=== PATIENT | male | born 1980 | race Caucasian/White ===

== ENCOUNTER 2018-12-25 16:44 | Emergency (ER) | payer MEDICAID, OTHER ==
[~2018-12-25] VITALS: Ht 177.8 cm; Wt 56.7 kg
--- OUTSIDE RECORDS SUMMARY | 2018-12-25 16:49 | XMS REPORT ---
Author Author Jamshid Rothman Organization [facility] Services Address [address] [place], [place] [id number] Care Team Providers Care School Bus Driver/Mechanic Name Role Phone Jamshid Rothman Unavailable PROBLEMS Type Condition ICD9-CM Code [id number] Code Onset Dates Condition Status SNOMED Code Problem Homeless Z59.0 Active 64334271 Problem Asthma with acute exacerbation J45.901 Active 018983267 Assessment Homeless Z59.0 Jul, Active 18771723 ALLERGIES Unknown Allergies SOCIAL HISTORY No smoking Hx information available PLAN OF CARE VITAL SIGNS MEDICATIONS Medication Instructions Dosage Frequency Start Date End Date Duration Status ProAir HFA 108 (90 Base) MCG/ACT Inhalation every 4 hrs 2 puffs as needed 4h Jun, 30 days Active Levaquin 750 MG Orally Once a day 1 tablet 24h Jun, 7 days Active PredniSONE 20 mg Orally Once a day 2 tablets 24h Jun, 5 days Active Breo Ellipta 100-25 MCG/INH Inhalation Once a day 1 puff 24h Jun, 30 days Active Proventil HFA 108 (90 Base) MCG/ACT Inhalation every 4 hrs 2 puffs as needed 4h Active RESULTS No Results PROCEDURES Procedure Date Ordered Related Diagnosis Body Site HOMELESS CASE MANAGEMENT 1/4 HR. Jul 24, 2016 IMMUNIZATIONS No Known Immunizations
--- OUTSIDE RECORDS SUMMARY | 2018-12-25 16:49 | XMS REPORT ---
Author Author [facility] Organization Outreach Address Unknown Phone Unavailable Care Team Providers Care Rigging Helper Name Role Phone [facility] Unavailable Unavailable PROBLEMS Type Condition ICD9-CM Code LCL25-RU Code Onset Dates Condition Status SNOMED Code Problem Homeless Z59.0 Active 83131595 Problem Asthma with acute exacerbation J45.901 Active 381754446 ALLERGIES Unknown Allergies SOCIAL HISTORY No smoking Hx information available PLAN OF CARE VITAL SIGNS MEDICATIONS Medication Instructions Dosage Frequency Start Date End Date Duration Status Celebrex 100 MG Orally Twice a day 1 capsule 12h Jul, Active RESULTS No Results PROCEDURES No Known procedures IMMUNIZATIONS No Known Immunizations
--- OUTSIDE RECORDS SUMMARY | 2018-12-25 16:49 | XMS REPORT ---
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 214066742 Problem Asthma exacerbation J45.901 Active 569247748 Problem Homeless Z59.0 Active 95387330 ALLERGIES Substance Reaction Event Type Date Status Haldol Comatose Drug Allergy Jul, Active ENCOUNTERS Encounter Location Date Diagnosis Outreach [address] [place] [phone] Oct, Convulsions, unspecified convulsion type R56.[address] [facility] [address] [place] [phone] Oct, Homeless Z59.0 [facility] [address] [place] [address] [phone] Aug, Homelessness Z59.[address] [place] [address] [phone] Aug, Symptomatic irreversible pulpitis K04.[address] [place] [address] [phone] Jul, Asthma exacerbation J45.901 [facility] [address] [place] [address] [phone] Jul, Homelessness Z59.[address] [facility] [address] [place] [address] [phone] Jul, Homelessness Z59.0 [facility] [address] [place] [address] [phone] Jul, Radiology [address] [place] [address] [phone] Jul, Left shoulder pain M25.512 and Mandibular pain R68.[address] [place] [address] [phone] Jul, Homeless Z59.[address] [place] [address] [id number] [phone] Jul, Mandibular pain R68.84 ; Left shoulder pain M25.512 and Painful pinna on examination, right H92.01 [facility] [address] [place] [address] [phone] Jun, Outreach [address] [place] [address] [id number] [phone] Jun, Chronic bronchitis with productive mucopurulent cough J41.[address] [facility] [address] [place] [address] [phone] Jun, Homelessness Z59.0 IMMUNIZATIONS Vaccine Route Administration Date Status orphenadrine citrate 60mg (Norflex), INJ IM Intramuscular Jul 24, 2016 Administered ketorolac tromethamine (Toradol),INJ IM Intramuscular Jul 24, 2016 Administered SOCIAL HISTORY Never Assessed REASON FOR VISIT Lt shoulder pain, Rt ear infx PLAN OF CARE Activity Details Follow Up 2 Weeks Reason:f/u pain VITAL SIGNS Height 72 in 2016-07-24 Weight 177.4 lbs 2016-07-24 Temperature 97.0 degrees Fahrenheit 2016-07-24 BMI 24.06 kg/m2 2016-07-24 Oximetry 97 2016-07-24 Blood pressure systolic 131 mm Hg 2016-07-24 Blood pressure diastolic 79 mm Hg 2016-07-24 MEDICATIONS Medication Instructions Dosage Frequency Start Date End Date Duration Status ProAir HFA 108 (90 Base) MCG/ACT Inhalation every 4 hrs 2 puffs as needed 4h Jun, 30 days Active Bactrim DS 800-160 MG Orally Twice a day 1 tablet 12h Jul, 7 days Active Zoloft 25 MG Orally Once a day 1 tablet 24h Active Breo Ellipta 100-25 MCG/INH Inhalation Once a day 1 puff 24h Jun, 30 days Active Proventil HFA 108 (90 Base) MCG/ACT Inhalation every 4 hrs 2 puffs as needed 4h Active RisperDAL 1 MG Orally Once a day 1 tablet 24h Active Ibuprofen 800 MG Orally Three times a day 1 tablet 8h Jul, 30 day(s) Active RESULTS No Results PROCEDURES Procedure Date Ordered Result Body Site ketorolac tromethamine (Toradol),INJ Jul 24, 2016 Norflex (Orephenadrine) 30mg, INJ... Jul 24, 2016 INSTRUCTIONS MEDICATIONS ADMINISTERED No Known Medications MEDICAL (GENERAL) HISTORY Type Description Date Medical History asthma - mild intermittent Medical History schizophrenia Medical History bipolar Surgical History retna attachment of both eyes Surgical History dbl hernia repair Surgical History surgery of urethra Surgical History gallbladder removed Surgical History tubes in both ears, pt thinks right tube fell out Hospitalization History [facility] - ear pain & asthma 06/2016 Hospitalization History pt reports no overnight hospital stays 08/21/16
--- OUTSIDE RECORDS SUMMARY | 2018-12-25 16:49 | XMS REPORT ---
Author Author Darion Marquez Organization Radiology Address [address] [place] [address] Phone Unavailable Care Team Providers Care Gis Engineer Name Role Phone Darion Marquez Unavailable Unavailable PROBLEMS Type Condition ICD9-CM Code JNQ30-NB Code Onset Dates Condition Status SNOMED Code Problem Homeless Z59.0 Active 93481357 Problem Asthma with acute exacerbation J45.901 Active 002844004 Assessment Left shoulder pain M25.512 Jul, Active 048615341 Assessment Mandibular pain R68.84 Jul, Active 782406444 ALLERGIES Unknown Allergies SOCIAL HISTORY No smoking Hx information available PLAN OF CARE VITAL SIGNS MEDICATIONS Medication Instructions Dosage Frequency Start Date End Date Duration Status Bactrim DS 800-160 MG Orally Twice a day 1 tablet 12h Jul, 7 days Active Breo Ellipta 100-25 MCG/INH Inhalation Once a day 1 puff 24h Jun, 30 days Active Zoloft 25 MG Orally Once a day 1 tablet 24h Active ProAir HFA 108 (90 Base) MCG/ACT Inhalation every 4 hrs 2 puffs as needed 4h Jun, 30 days Active Proventil HFA 108 (90 Base) MCG/ACT Inhalation every 4 hrs 2 puffs as needed 4h Active Risperdal 1 MG Orally Once a day 1 tablet 24h Active Celebrex 100 MG Orally Twice a day 1 capsule 12h Jul, 30 day(s) Active RESULTS Name Result Date Reference Range X ray : Shoulder, left 2016-07-24 X ray : Mandible -- Transmits 2016-07-26 PROCEDURES Procedure Date Ordered Related Diagnosis Body Site SHOULDER MIN2 VIEWS Jul 24, 2016 X-RAY EXAM OF JAW Jul 24, 2016 IMMUNIZATIONS No Known Immunizations
--- OUTSIDE RECORDS SUMMARY | 2018-12-25 16:49 | XMS REPORT ---
Author Author Ashley Romero Organization [employer] Address Unknown Phone Unavailable Care Team Providers Care Mult Au Matic Operator Name Role Phone Ashley Romero CP Unavailable Allergies, Adverse Reactions, Alerts Substance Reaction Event Type Haldol Info Not Available Drug Allergy Problems Problem Type Condition Code Onset Dates Condition Status Assessment Chronic bronchitis with productive mucopurulent cough J41.1 Active Problem Asthma with acute exacerbation J45.901 Active Medications Medication Code System Code Instructions Start Date End Date Status Dosage Levaquin [facility] [address]-88 750 MG Orally Once a day Jun 23, 2016 1 tablet Breo Ellipta [facility] [address]-44 100-25 MCG/INH Inhalation Once a day Jun 23, 2016 1 puff PredniSONE [facility] [address]-25 20 mg Orally Once a day Jun 23, 2016 2 tablets Proventil HFA [facility] [address]-34 108 (90 Base) MCG/ACT Inhalation every 4 hrs 2 puffs as needed Procedures Procedure Coding System Code Date Solu-Medrol, INJ (Methylprednisolone sodium)...DO NOT USE CPT-4 J2930 Jun 23, 2016 ESTAB PT LEVEL II CPT-4 83042 Jun 23, 2016 NEB/MDI RX INITIAL CPT-4 62304 Jun 23, 2016 Vital Signs Date/Time: Jun 23, 2016 Temperature 98.0 F Weight 173.0 lbs Height 72 in Pain Scale 6 0-10 BMI 23.46 Index Blood Pressure Diastolic 72 mm Hg Blood Pressure Systolic 136 mm Hg Results No Known Results Summary Purpose [employer] Submission
--- OUTSIDE RECORDS SUMMARY | 2018-12-25 16:50 | XMS REPORT ---
Author Author Ashley Romero Organization [employer] Address Unknown Phone Unavailable Care Team Providers Care Cell Installer Name Role Phone Ashley Romero Unavailable Allergies No Known Allergies Problems Problem Type Condition Code Onset Dates Condition Status Problem Asthma with acute exacerbation J45.901 Active Medications Medication Code System Code Instructions Start Date End Date Status Dosage ProAir HFA [facility] [address]-02 108 (90 Base) MCG/ACT Inhalation every 4 hrs Jun 24, 2016 2 puffs as needed Results No Known Results Summary Purpose [employer] Submission
--- OUTSIDE RECORDS SUMMARY | 2018-12-25 16:50 | XMS REPORT ---
Author Author Leana Carreon Organization [employer] Address Unknown Phone Unavailable Care Team Providers Care Doctor Of Nurse Anesthesia Name Role Phone Leana Carreon CP Unavailable Allergies No Known Allergies Problems Problem Type Condition Code Onset Dates Condition Status Assessment Homelessness Z59.0 Active Medications No Known Medications Procedures Procedure Coding System Code Date HOMELESS CASE MANAGEMENT 07/22 HR. CPT-4 Jun 18, 2016 [facility] ELIGIBILITY SCREEN CPT-4 Jun 18, 2016 Results No Known Results Summary Purpose [employer] Submission
--- NOTE | 2018-12-25 18:14 | ED Headache ---
General Chief Complaint: Head/Cervical Problems Stated Complaint: RIGHT SIDE FACE PAIN Nursing Triage Note: pt states rt facial pain, pt complaint of rt ear pain, concerned with rt ear. Nursing Sepsis Screen: No Definite Risk Source: patient Exam Limitations: no limitations History of Present Illness Date Seen by Provider: Dec 25, 2018 Time Seen by Provider: 18:02 Initial Comments 38 year old male with complaints of possible sinus infection and chronic TMJ. Reports normally takes muscle relaxer for TMJ. Denies fevers. Timing/Duration: 24 hours Associated Symptoms: facial pain, nasal congestion, nasal drainage Allergies and Home Medications Allergies Coded Allergies: haloperidol (Unverified Allergy, Unknown, 12/25/18) Home Medications Albuterol Sulfate 1 Puff Puff, 2 PUFF IH Q4H 1 PUFF = 90 MCG Prescribed by: DAFNE TALAMANTES on 12/25/181814 Amoxicillin/Potassium Clav 1 Each Tablet, 1 EACH PO BID Prescribed by: DAFNE TALAMANTES on 12/25/181814 Patient Home Medication List Home Medication List Reviewed: Yes Review of Systems Review of Systems Constitutional: see HPI; No chills, No fever Ears, Nose, Mouth, Throat: see HPI, ear pain, nose pain All Other Systems Reviewed Negative Unless Noted: Yes Past Wssjxdg-Ygmqnj-Clotpv Hx Past Med/Social Hx: Reviewed Nursing Past Med/Soc Hx Patient Social History Alcohol Use: Denies Use Recreational Drug Use: No Smoking Status: Current Everyday Smoker Type Used: Cigarettes 2nd Hand Smoke Exposure: Yes Recent Foreign Travel: No Contact w/Someone Who Travel: No Recent Infectious Disease Expo: No Past Medical History Psychosocial: Yes Bipolar, Schizophrenia, Depression Blood Disorders: No Adverse Reaction/Blood Tranf: No Family Medical History Reviewed Nursing Family Hx Physical Exam Vital Signs Vital Signs - First Documented 12/25/18 17:13 Temp 98.0 Pulse 83 Resp 18 B/P (MAP) 137/84 (101) Pulse Ox 95 O2 Delivery Room Air Capillary Refill : Less Than 3 Seconds Height, Weight, BMI Height: 5'10.00" Weight: 125lbs. oz. 56.257713xe; BMI Method:Stated General Appearance: WD/WN, no apparent distress HEENT: other Cardiovascular: normal peripheral pulses, regular rate, rhythm, no edema, no gallop, no JVD, no murmur Respiratory: chest non-tender, lungs clear, normal breath sounds, no respiratory distress, no accessory muscle use Extremities: normal capillary refill Psychiatric: alert, oriented x 3 Skin: normal color, warm/dry Progress/Results/Core Measures Results/Orders My Orders Orders - DAFNE TALAMANTES Cyclobenzaprine Tablet (Flexeril Tablet) (12/25/18 18:15) Acetaminophen Tablet (Tylenol Tablet) (12/25/18 18:15) Amoxicillin/Clavulanate Tablet (Augmenti (12/25/18 18:15) Vital Signs/I&O 12/25/18 12/25/18 17:13 18:30 Temp 98.0 98.0 Pulse 83 83 Resp 18 18 B/P (MAP) 137/84 (101) 137/84 (101) Pulse Ox 95 95 O2 Delivery Room Air Room Air Blood Pressure Mean: 101 Departure Impression Primary Impression: Sinusitis Additional Impression: Chronic TMJ pain Disposition: 01 HOME, SELF-CARE Condition: Stable/Unchanged Departure-Patient Inst. Decision time for Depature: 18:09 Referrals: NO,LOCAL PHYSICIAN (PCP/Family) Primary Care Physician Patient Instructions: Sinusitis, Adult (DC), Temporomandibular Joint (TMJ) Disorders (DC) Add. Discharge Instructions: Take medication as directed. Use ibuprofen and Tylenol as directed by the bottle for pain relief. Follow-up with her primary care provider within 1 week for recheck. Return back to the emergency room for worsening symptoms or concerns as needed. All discharge instructions reviewed with patient and/or family. Voiced understanding. Scripts Albuterol Sulfate (PROAIR HFA) 1 Puff Puff 2 PUFF IH Q4H, #1 PUFF 1 PUFF = 90 MCG Prov: DAFNE TALAMANTES 12/25/18 Amoxicillin/Potassium Clav (Augmentin 875-125 Tablet) 1 Each Tablet 1 EACH PO BID for 7 Days, #14 TAB 0 Refills Prov: DAFNE TALAMANTES 12/25/18 DAFNE TALAMANTES Dec 25, 2018 18:14
[2018-12-25] MEDS ORDERED: AUGMENTIN 875 MG TAB (AMOXICILLIN/CLAVULANATE) PO SCH (18:15)
[2018-12-25] MEDS ORDERED: RT-ALBUINH IH (18:15)
[2018-12-25] MEDS ORDERED: ACETAMINOPHEN 500 MG TAB (TYLENOL) PO ONE (18:15)
[2018-12-25] MEDS ORDERED: AMOX-358 PO (18:15)
[2018-12-25] MEDS ORDERED: CYCLOBENZAPRINE 10 MG (FLEXERIL) TAB PO SCH (18:15)
[2018-12-25 18:30] VITALS: BP 137/84
== END 2018-12-25 18:31 | disposition home or self-care (01) ==
LOC: ER 16:45
DX: J32.9 Chronic sinusitis, unspecified (principal); M26.69 Other specified disorders of temporomandibular joint; G89.29 Other chronic pain; F31.9 Bipolar disorder, unspecified; F20.9 Schizophrenia, unspecified; F17.210 Nicotine dependence, cigarettes, uncomplicated; Z88.8 Allergy status to other drugs, medicaments and biological substances
CPT/HCPCS: 99283